=== PATIENT | male | born 1990 | race Two or more races ===

== ENCOUNTER 2016-06-24 20:44 | Emergency (ER) | payer OTHER ==
[2016-06-24 20:50] VITALS: BP 143/83; PULSE 86; TEMP 98.8; BMI 26.9
== END 2016-06-24 22:23 | disposition left against medical advice (07) ==
LOC: JER 20:44 → JERFT 20:44 → JER 22:23
DX: Z53.21 Procedure and treatment not carried out due to patient leaving prior to being seen by health care provider (principal)
CPT/HCPCS: 99281-25

== ENCOUNTER 2016-06-25 12:58 | Emergency (ER) | payer OTHER ==
[2016-06-25 13:03] VITALS: BP 154/76; PULSE 65; TEMP 97.5; BMI 26.9
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
[2016-06-25] MEDS ORDERED: KETOROLAC TROMETHAMINE 60 MG/2 ML VIAL IM ONE (15:13)
[2016-06-25] MEDS ORDERED: KETOROLAC TROMETHAMINE 60 MG/2 ML VIAL ONE (15:35)
== END 2016-06-25 16:23 | disposition home or self-care (01) ==
LOC: JERFT 12:58
PROC: 3E0233Z Introduction of Anti-inflammatory into Muscle, Percutaneous Approach (ICD-10-PCS; principal; 2016-06-25)
DX: G44.301 Post-traumatic headache, unspecified, intractable (principal); M54.5 Low back pain; M54.2 Cervicalgia; V43.52XA Car driver injured in collision with other type car in traffic accident, initial encounter; Y92.414 Local residential or business street as the place of occurrence of the external cause; Y93.89 Activity, other specified; Y99.8 Other external cause status
CPT/HCPCS: 70450-TC; 72050-TC; 73030-TC-LT; 99281-25

== ENCOUNTER 2016-11-15 12:15 | Emergency (ER) | payer OTHER ==
[2016-11-15 12:59] VITALS: BP 143/67; PULSE 76; TEMP 98.2; BMI 24.9
[2016-11-15] MEDS ORDERED: KETOROLAC TROMETHAMINE 60 MG/2 ML VIAL ONE (14:11)
[2016-11-15] MEDS ORDERED: AMOXICILLIN 250 MG CAPSULE ONE (14:12)
[2016-11-15] MEDS ORDERED: AMOXICILLIN 500 MG CAPSULE (FP) PO ONE (14:13)
[2016-11-15] MEDS ORDERED: KETOROLAC TROMETHAMINE 60 MG/2 ML VIAL IM ONE (14:13)
--- NOTE | 2016-11-15 14:21 | PDOC ---
History of Present Illness - General Chief Complaint: Pain, Acute Stated Complaint: PAIN, ACUTE Time Seen by Provider: 11/15/16 13:30 History Source: Patient Exam Limitations: No Limitations - History of Present Illness Initial Comments: 11/15/16 14:15 And here with complaints of severe left TMJ or mandibular pain. Is uncertain as it is a wisdom tooth problem versus a dental problem versus TMJ. Patient is currently in a pain management program and has Percocet at home for treatment of chronic back and multiple joint problems. States Percocet last night did not relieve this pain. Has not been able to seek a dentist today due to the holidays. Came to emergency department for evaluation. Denies fevers, denies recent trauma Occurred: reports: other Severity: reports: moderate, severe Pain Location: reports: face, mouth Method of Injury: Yes: unknown Modifying Factors: improves with: None Past History - Travel Traveled outside of the country in the last 30 days: No Close contact w/someone who was outside of country & ill: No - Past Medical History Allergies/Adverse Reactions: Allergies Allergy/AdvReac Type Severity Reaction Status Date / Time No Known Allergies Allergy Verified 11/15/16 13:00 Home Medications: Ambulatory Orders Amoxicillin - [Amoxicillin 500mg Capsule -] 500 mg PO TID #21 capsule 11/15/16 Naproxen [Naprosyn -] 500 mg PO TID #30 tablet 11/15/16 - Suicide/Smoking/Psychosocial Hx Smoking History: Never smoked Have you smoked in the past 12 months: No Information on smoking cessation initiated: No Hx Alcohol Use: No Drug/Substance Use Hx: No Substance Use Type: None Trauma Specific PMHX - Complaint Specific PMHX Back Injury: No Neck Injury: No Review of Systems - Review of Systems Able to Perform ROS?: Yes Is the patient limited Pashto proficient: Yes Constitutional: Yes: Symptoms Reported, See HPI, Loss of Appetite, Malaise. No : Chills, Fever HEENTM: Yes: Symptoms Reported, See HPI, Mouth Pain, Dental Problems. No: Eye Pain Respiratory: Yes: See HPI. No: Symptoms reported, Cough Musculoskeletal: Yes: Symptoms Reported Integumentary: Yes: See HPI. No: Symptoms Reported Neurological: Yes: Symptoms reported, See HPI, Headache All Other Systems: Reviewed and Negative *Physical Exam - Vital Signs Last Vital Signs Temp Pulse Resp BP Pulse Ox 98.2 F 76 20 143/67 98 11/15/16 12:54 11/15/16 12:54 11/15/16 12:54 11/15/16 12:54 11/15/16 12:54 - Physical Exam General Appearance: Yes: Nourished, Appropriately Dressed, Apparent Distress HEENT: positive: TMs Normal, Pharynx Normal, Other (obvious swelling, abscess, or dental caries noted primarily to the left lower upper jaw. Has no crepitus or step-offs to TMJ although pain is reproduced along the angle of mandible) Neck: positive: Tender, Supple. 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 Encouraged to follow-up with dentist for evaluation of teeth grinding, dental plate, and dental x-rays to rule out any injury. *DC/Admit/Observation/Transfer Diagnosis at time of Disposition: TMJ (dislocation of temporomandibular joint) Qualifiers: Encounter type: initial encounter Qualified Code(s): S03.00XA - Dislocation of jaw, unspecified side, initial encounter - Discharge Dispostion Disposition: HOME Condition at time of disposition: Stable Admit: No - Prescriptions Prescriptions: Amoxicillin - [Amoxicillin 500mg Capsule -] 500 mg PO TID #21 capsule Naproxen [Naprosyn -] 500 mg PO TID #30 tablet - Patient Instructions Printed Discharge Instructions: DI for Temporomandibular Disorder, TMJ Syndrome (Alternative Therapy) Additional Instructions: Rest, drink lots of fluids: Teas, water, soups Saltwater gargles/ keep mouth clean and rinse after each meal May use wet teabag for pain relief to area Avoid hard chewing foods, stick to ice cream, Jell-O, yogurt etc. Naprosayn every 8 hours for 3 days then as needed Amoxicillin every 8 hours until completed Percocet for severe pain Complete all medication as prescribed Seek dental appointment as soon as possible for evaluation of dental injury/pain Followup with private physician in one to 2 days as needed Return to emergency department for worsened symptoms, fevers, swelling to face or worsened pain - Post Discharge Activity Forms/Work/School Notes: Back to Work
== END 2016-11-15 14:26 | disposition home or self-care (01) ==
LOC: JERFT 12:15
PROC: 3E0233Z Introduction of Anti-inflammatory into Muscle, Percutaneous Approach (ICD-10-PCS; principal; 2016-11-15)
DX: S03.00XA Dislocation of jaw, unspecified side, initial encounter (principal); X58.XXXA Exposure to other specified factors, initial encounter; Y93.89 Activity, other specified; Y92.9 Unspecified place or not applicable
CPT/HCPCS: 96372; 99281-25

== ENCOUNTER 2017-06-07 05:11 | Emergency (ER) | payer OTHER ==
[2017-06-07 05:30] VITALS: BP 141/96; PULSE 73; TEMP 97.6; BMI 27.3
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
== END 2017-06-07 06:43 | disposition home or self-care (01) ==
LOC: JER 05:11
DX: G47.09 Other insomnia (principal)
CPT/HCPCS: 99282-25

== ENCOUNTER 2018-03-28 13:31 | Emergency (ER) | payer OTHER ==
[2018-03-28 13:48] VITALS: BP 130/75; PULSE 78; TEMP 97.9; BMI 28.0
[2018-03-28] MEDS ORDERED: IBUPROFEN 600 MG TABLET (FP) PO ONE ×2 (14:06→14:10)
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
== END 2018-03-28 15:56 | disposition home or self-care (01) ==
LOC: JERFT 13:31
PROC: 0H9QXZZ Drainage of Finger Nail, External Approach (ICD-10-PCS; principal; 2018-03-28)
DX: S60.112A Contusion of left thumb with damage to nail, initial encounter (principal); V48.4XXA Person boarding or alighting a car injured in noncollision transport accident, initial encounter; Y92.488 Other paved roadways as the place of occurrence of the external cause; Y93.89 Activity, other specified; Y99.8 Other external cause status
CPT/HCPCS: 73140-TC-LT-FY; 99281-25

== ENCOUNTER 2021-09-18 21:30 | Emergency (ER) | payer OTHER ==
[2021-09-18 21:41] VITALS: BP 119/74; PULSE 77; RESP 20; TEMP 98.1; BMI 28.0
== END 2021-09-18 23:19 | disposition home or self-care (01) ==
LOC: JER 21:30
DX: B97.11 Coxsackievirus as the cause of diseases classified elsewhere (principal)
CPT/HCPCS: 87651; 99283-25

== ENCOUNTER 2021-09-19 09:53 | Emergency (ER) | payer OTHER ==
[2021-09-19 10:01] VITALS: BP 141/73; PULSE 69; RESP 18; TEMP 98.3; BMI 28.0
[2021-09-19] MEDS ORDERED: KETOROLAC TROMETHAMINE 30 MG/1 ML VIAL IM ONE (10:42)
[2021-09-19] MEDS ORDERED: KETOROLAC TROMETHAMINE 30 MG/1 ML VIAL ONE (11:00)
== END 2021-09-19 11:23 | disposition home or self-care (01) ==
LOC: JERFT 09:53
PROC: 3E023GC Introduction of Other Therapeutic Substance into Muscle, Percutaneous Approach (ICD-10-PCS; principal; 2021-09-19)
DX: B08.4 Enteroviral vesicular stomatitis with exanthem (principal)
CPT/HCPCS: 99284-25

== ENCOUNTER 2022-03-30 10:57 | Emergency (ER) | payer OTHER ==
[2022-03-30 11:07] VITALS: BP 125/75; PULSE 70; RESP 18; TEMP 97.7; BMI 26.6
== END 2022-03-30 11:50 | disposition left against medical advice (07) ==
LOC: JER 10:57
DX: R07.9 Chest pain, unspecified (principal)
CPT/HCPCS: 93005; 93010; 99283-25

== ENCOUNTER 2022-12-04 11:37 | Emergency (ER) | payer OTHER ==
[2022-12-04 11:51] VITALS: BP 152/79; PULSE 106; RESP 20; TEMP 98.3; BMI 28.8
[2022-12-04] MEDS ORDERED: LIDOCAINE 5% TOPICAL PATCH TP ONE (12:22)
[2022-12-04] MEDS ORDERED: KETOROLAC TROMETHAMINE 30 MG/1 ML VIAL IM ONE (12:22)
[2022-12-04] MEDS ORDERED: LIDOCAINE 4% PATCH TP ONE (12:30)
[2022-12-04] MEDS ORDERED: KETOROLAC TROMETHAMINE 30 MG/1 ML VIAL ONE (12:31)
[2022-12-04 14:42] LABS: URINE APPEARANCE CLEAR; URINE BILIRUBIN NEGATIVE (NEGATIVE); URINE COLOR YELLOW; URINE GLUCOSE (UA) NEGATIVE (NEGATIVE); URINE KETONE NEGATIVE (NEGATIVE); URINE LEUK ESTERASE NEGATIVE (NEGATIVE); URINE NITRITE NEGATIVE (NEGATIVE); URINE PROTEIN NEGATIVE (NEGATIVE); URINE UROBILINOGEN 0.2 mg/dL (0.2-1.0)
[2022-12-04] MEDS ORDERED: LIDOCAINE PATCH REMOVAL MC ONE (22:00)
== END 2022-12-04 15:05 | disposition home or self-care (01) ==
LOC: JER 11:37
PROC: 3E0233Z Introduction of Anti-inflammatory into Muscle, Percutaneous Approach (ICD-10-PCS; principal; 2022-12-04)
DX: N50.811 Right testicular pain (principal); M54.50 Low back pain, unspecified; N43.3 Hydrocele, unspecified
CPT/HCPCS: 76870-TC; 81003; 87086; 99284-25